=== PATIENT | male | born 1985 | race Caucasian/White ===

== ENCOUNTER 2017-05-11 05:56 | Emergency (ER) | payer MEDICAID ==
[~2017-05-11] VITALS: Ht 182.9 cm; Wt 127.3 kg
[2017-05-11 07:08] VITALS: BP 144/88
[2017-05-11] MEDS ORDERED: KETOROLAC TROMETHAMINE 60 MG/2 ML VIAL IM ONE (07:15)
== END 2017-05-11 07:58 | disposition home or self-care (01) ==
LOC: EMS 05:57
DX: R51 Headache (principal)
CPT/HCPCS: 96372; 99283; J1885